=== PATIENT | female | born 1935 | race Caucasian/White ===

== ENCOUNTER 2019-11-26 08:07 | Emergency (ER) | payer MEDICARE ==
[~2019-11-26] VITALS: Ht 160 cm; Wt 54.4 kg
[~2019-11-26 08:07] MED LIST: ASPIRIN325 MG PO; COQ-10100 MG PO; FLONASE16 GM NS; K DUR10 MEQ PO; LASIX20 MG PO; LASIX40 MG PO; METOPROLOL TART50 MG PO; MUCINEX DM ER1 EACH PO; NORVASC5 MG PO; PLAVIX75 MG PO; VITAMIN D1000 UNI1 PO
--- NOTE | 2019-11-26 08:29 | Emergency Department Note ---
History of Present Illnes History of Present Illness Chief Complaint: Back Pain History of Present Illness This is a 83 year old female arrives to the ED with several day history of left flank pain is worse with motion. Historian: Patient Arrival Mode: Car Onset (how long ago): day(s) Radiation: Reports back Severity: mild Duration (how long): day(s) Timing of current episode: constant Progression: worsening Chronicity: new Context: Reports trauma/injury Relieving factors: none Exacerbating factors: none Past Medical/Family History Physician Review I have reviewed the patient's past medical and family history. Any updates have been documented here. Past Medical History Recent Fever: No Clinical Suspicion of Infectio: No New/Unexplained Change in Ment: No Past Medical History: Hypertension, CVA Other Medical History: diverticulosis osyeroproosis subdural hematoma Other Surgery: kyphoplasty Social History Smoking Cessation: Never Smoker Counseling Performed: No Alcohol Use: None Any Illegal Drug Use: No Physically hurt or threatened: No Other Last Tetanus: unknown Any Pre-Existing Lines (PICC,: No Is patient up to date on immun: No Review of Systems Review of Systems Constitutional: Reports no symptoms EENTM: Reports no symptoms Cardiovascular: Reports no symptoms Respiratory: Reports no symptoms Gastrointestinal: Reports no symptoms Genitourinary: Reports no symptoms Musculoskeletal: Reports as per HPI, Reports back pain Integumentary: Reports no symptoms Neurological: Reports no symptoms Psychological: Reports no symptoms Endocrine: Reports no symptoms Hematological/Lymphatic: Reports no symptoms Physical Exam Related Data Allergies: Coded Allergies: warfarin (Verified Allergy, Intermediate, subdural bleeds, 04/18/14) Uncoded Allergies: PENICILLIN (Allergy, Intermediate, hives, 04/18/14) Triage Vital Signs Vital Signs Date Time Temp Pulse Resp B/P (MAP) Pulse Ox O2 Delivery O2 Flow Rate FiO2 11/26/19 08:09 98.8 85 16 152/92 96 Room Air Vital signs reviewed: Yes Physical Exam CONSTITUTIONAL Constitutional: Present well-developed, Present well-nourished HENT HENT: Present normocephalic, Present atraumatic, Present oropharynx clear/moist, Present nose normal HENT L/R: Present left ext ear normal, Present right ext ear normal EYES Eyes: Reports PERRL, Reports conjunctivae normal NECK Neck: Present ROM normal PULMONARY Pulmonary: Present effort normal, Present breath sounds normal CARDIOVASCULAR Cardiovascular: Present regular rhythm, Present heart sounds normal, Present capillary refill normal, Present normal rate GASTROINTESTINAL Abdominal: Present soft, Present nontender, Present bowel sounds normal, Present left CVA tenderness GENITOURINARY Genitourinary: Present exam deferred SKIN Skin: Present warm, Present dry MUSCULOSKELETAL Musculoskeletal: Present tenderness, Present swelling (left flank tenderness, no rash, no skin break) NEUROLOGICAL Neurological: Present alert, Present oriented x 3, Present no gross motor or sensory deficits PSYCHOLOGICAL Psychological: Present mood/affect normal, Present judgement normal Results Laboratory Lab results reviewed: Yes Imaging Imaging results reviewed: Yes Imaging Comments IMPRESSION: Moderate left hydronephrosis without obstructing calculus identified. 4 mm nonobstructive right midpole renal calculus. Increased stool burden. Diverticulosis without CT evidence of diverticulitis. Diffuse osteopenia and prominent dextroconvex curvature and multilevel degenerative changes of the lumbar spine. Assessment & Plan Medical Decision Making MDM 83-year-old female arrived to the ED with left-sided flank pain. Marked scoliosis and constipation noted on CT scan. Renal stone noted, however, is intrarenal and less likely causes of pain. Patient given magnesium citrate and Colace, encouraged outpatient GI follow-up for management of her chronic constipation. No concerns for acute surgical emergency at time of discharge. Assessment & Plan Final Impression: (1) Constipation Depart Disposition: HOME, SELF-CARE Last Vital Signs Date Time Temp Pulse Resp B/P (MAP) Pulse Ox O2 Delivery O2 Flow Rate FiO2 11/26/19 08:09 98.8 85 16 152/92 96 Room Air Home Meds Active Scripts Docusate Sodium (COLACE) 100 Mg Cap, 100 MG PO DAILY, #30 CAP Prov:PEDRITO MAX, 11/26/19 Furosemide (LASIX) 40 Mg Tablet, 40 MG PO DAILY, #30 TAB Prov:SKY JACK MD 04/24/14 Reported Medications Fluticasone Propionate (FLONASE) 16 Gm [place].susp, 16 GM NS DAILY, BOTTLE 04/24/14 Guaifenesin/Dextromethorphan (MUCINEX DM ER 600-30 MG TABLET) 1 Each Tab.er.12h, 1 EACH PO BID PRN for NASAL CONGESTION, TAB 04/24/14 Metoprolol Tartrate (METOPROLOL TARTRATE) 50 Mg Tablet, 50 MG PO HS, TAB 04/24/14 Metoprolol Tartrate (METOPROLOL TARTRATE) 50 Mg Tablet, 100 MG PO QAM, TAB 04/24/14 Potassium Chloride* (K DUR*) 10 Meq Tabcr, 20 MEQ PO DAILY 04/24/14 Amlodipine Besylate (NORVASC) 5 Mg Tab, 10 MG PO DAILY, #30 TAB 04/24/14 Ubidecarenone (COQ-10) 100 Mg Capsule, 200 UNITS PO DAILY 04/18/14 Cholecalciferol (Vitamin D3) (VITAMIN D) 1,000 Unit Tablet, 1000 UNIT PO DAILY, #30 TAB 04/18/14 Medications in the ED Aspirin 81 mg PRN ONCE PO ; Start 11/26/19 at 08:30; Stop 11/26/19 at 08:31; Status UNV PEDRITO MAX, Nov 26, 2019 08:28
[2019-11-26] MEDS ORDERED: ASPIRIN 81 MG CHEW TAB PO ONE (08:30)
[2019-11-26] MEDS ORDERED: FENTANYL CITRATE/PF 100MCG/2 ML INJ IV ONE (08:30)
[2019-11-26 08:40] LABS: BASOPHILS # (AUTO) 0.1 (0.0-0.1); BASOPHILS % 0.7 % (0.0-1.0); EOSINOPHILS # (AUTO) 0.1 (0.0-0.4); EOSINOPHILS % 0.6 % (0.0-6.0); HEMATOCRIT 46.2 % (34.2-44.1); HEMOGLOBIN 15.1 g/dL (12.0-16.0); LYMPHOCYTES # (AUTO) 1.5 (1.0-3.2); LYMPHOCYTES % 18.2 % (18.0-39.1); MEAN CORPUSCULAR HEMOGLOBIN 28.8 pg (28-32); MEAN CORPUSCULAR HGB CONC 32.7 g/dL (31-35); MONOCYTES # (AUTO) 0.5 (0.2-0.8); MONOCYTES % 6.2 % (4.4-11.3); NEUTROPHILS # (AUTO) 6.1 (2.1-6.9); NEUTROPHILS % 73.9 % (38.7-80.0); PLATELET COUNT 286 x10e3/uL (140-360); RED BLOOD COUNT 5.25 x10e6/uL (3.6-5.1); RED CELL DISTRIBUTION WIDTH 13.1 % (11.7-14.4)
[2019-11-26 09:03] LABS: ALANINE AMINOTRANSFERASE 14 IU/L (0-55); ALBUMIN 3.9 g/dL (3.5-5.0); ALBUMIN/GLOBULIN RATIO 1.1 (0.8-2.0); ALKALINE PHOSPHATASE 95 IU/L (40-150); BLOOD UREA NITROGEN 12 mg/dL (7-26); BUN/CREATININE RATIO 14 (6-25); CALCIUM 9.7 mg/dL (8.4-10.2); CARBON DIOXIDE 22 mmol/L (22-29); CHLORIDE 106 mmol/L (98-107); CREATINE KINASE 32 IU/L (29-168); CREATININE, SERUM 0.85 mg/dL (0.57-1.11); EST GLOMERULAR FILTRATION RATE > 60 ML/MIN (60-); GLUCOSE 108 mg/dL (74-118); SODIUM 139 mmol/L (136-145)
--- NOTE | 2019-11-26 09:11 | Diagnostic Imaging Report ---
EXAMINATION: CHEST SINGLE (PORTABLE) INDICATION: Chest pain COMPARISON: Report of chest radiograph of 04/24/2014 (images not available for comparison). FINDINGS: LINES/TUBES:None LUNGS:The lungs are hyperinflated. Biapical pleural parenchymal thickening/scarring. No focal consolidation or pulmonary edema. PLEURA:Trace fissural fluid on the right. No pneumothorax. MEDIASTINUM:Cardiomediastinal silhouette is enlarged. BONES/SOFT TISSUES:No acute osseous injury. ABDOMEN:No free air under the diaphragm. IMPRESSION: Hyperinflated lungs and biapical pleural parenchymal thickening/scarring. No focal consolidation or pulmonary edema. Cardiomegaly. Signed by: Jeremy Tolentino MD on 11/26/2019 9:08 AM
[2019-11-26] MEDS ORDERED: METHYLPREDNISOLONE SOD SUCC 125 MG/2ML VIAL IV ONE (09:15)
[2019-11-26] MEDS ORDERED: DIAZEPAM 5 MG TAB PO ONE (09:30)
--- OUTSIDE RECORDS SUMMARY | 2019-11-26 09:44 | XMS REPORT | Continuity of Care Document ---
Author Author [facility] t Organization [facility] Address [address] [place] [id number] Phone Unavailable Care Team Providers Care Licensed Clinical Psychologist Name Role Phone Charito MAX Attjuan f Unavailable Payers Payer Name Policy Type Policy Number Effective Date Expiration Date S ource Problems This patient has no known problems. Allergies, Adverse Reactions, Alerts This patient has no known allergies or adverse reactions. Medications This patient has no known medications. Procedures This patient has no known procedures. Results Test Description Test Time Test Comments Results Result Comments Source CHEST SINGLE (PORTABLE) 2019-11-26 09:06:00 [facility] [address] [place] [address] Patient Name: MEENAKSHI SOTELO MR #: [id number] : 1935 Age/Sex: 83/F Req #: [id number] Adm Physician: Ordered by: PEDRITO MAX DO Report #: [id number] Location: ER Room/Bed: Procedure: [id number] DX/CHEST SINGLE (PORTABLE) Exam Date: Exam Time: REPORT STATUS: Signed EXAMINATION: CHEST SINGLE (PORTABLE) INDICATION: Chest pain COMPARISON: Report of chest radiograph of 04/24/2014 (images not available for comparison). FINDINGS: LINES/TUBES:None LUNGS:The lungs are hyperinflated. Biapical pleural parenc hymal thickening/scarring. No focal consolidation or pulmonary edema. PLEURA:Trace fissural fluid on the right. No pneumothorax. MEDIASTINUM:Cardiomediastinal silhouette is enlarged. BONES/SOFT TISSUES:No acute osseous injury. ABDOMEN:No free air under the diaphragm. IMPRESSION: Hyperinflated lungs and biapical pleural parenchymal thickening/scarring. No focal consolidation or pulmonary edema. Cardiomegaly. Signed by: Thomas Tolentino MD on 11/26/2019 9:08 AM Dictated By: THOMAS TOLENTINO MD [id number] Transcribed By: YARON on 11/26/19 0908 COPY TO: PEDRITO MAX DO
--- NOTE | 2019-11-26 10:00 | Diagnostic Imaging Report ---
EXAM: CT Abdomen and Pelvis WITHOUT intravenous contrast INDICATION: Left flank pain COMPARISON: None. TECHNIQUE: Abdomen and pelvis were scanned utilizing a multidetector helical scanner from the lung base to the pubic symphysis without administration of IV contrast. Coronal and sagittal reformations were obtained. IV CONTRAST: None ORAL CONTRAST: None COMPLICATIONS: None RADIATION DOSE: Total DLP: 222 mGy*cm Dose modulation, iterative reconstruction, and/or weight based adjustment of the mA/kV was utilized to reduce the radiation dose to as low as reasonably achievable. FINDINGS: LOWER THORAX: No lung base consolidation. Coronary artery atherosclerotic calcifications. Cardiomegaly. HEPATOBILIARY: 1.7 cm segment 4 hepatic cystic structure. No other focal liver lesions. Unremarkable gallbladder. SPLEEN: No splenomegaly. PANCREAS: No focal masses or ductal dilatation. ADRENALS: No adrenal nodules. KIDNEYS/URETERS: Moderate left hydronephrosis without obstructing calculus identified. 4 mm nonobstructive right midpole renal calculus. PELVIC ORGANS/BLADDER: Unremarkable. PERITONEUM / RETROPERITONEUM: No free air or fluid. LYMPH NODES: No lymphadenopathy. VESSELS: Moderate atherosclerotic calcifications of the nonaneurysmal abdominal aorta and major branches. GI TRACT: Increased rectal stool burden. Diverticulosis without CT evidence of diverticulitis. No abnormal bowel thickening. No bowel obstruction. Normal appendix. BONES AND SOFT TISSUES: Diffuse osteopenia. Prominent dextroconvex curvature of the lumbar spine with prominent multilevel degenerative changes. No acute osseous injury. IMPRESSION: Moderate left hydronephrosis without obstructing calculus identified. 4 mm nonobstructive right midpole renal calculus. Increased stool burden. Diverticulosis without CT evidence of diverticulitis. Diffuse osteopenia and prominent dextroconvex curvature and multilevel degenerative changes of the lumbar spine. Signed by: Jeremy Tolentino MD on 11/26/2019 9:57 AM
[2019-11-26] MEDS ORDERED: ONDANSETRON HCL INJ 2MG/ML 2ML 2 MG/ML VIAL IV STA (10:14)
[2019-11-26] MEDS ORDERED: MORPHINE SULFATE INJ 4 MG/ML INJ 1ML IV ONE (10:30)
[2019-11-26] MEDS ORDERED: SODIUM CHLORIDE 0.9% 1000ML 1,000 ML ONE (10:33)
[2019-11-26] MEDS ORDERED: SODIUM CHLORIDE 0.9% 1000ML 1,000 ML IV ONE (10:45)
[2019-11-26 11:06] LABS: BILIRUBIN,URINE NEGATIVE (NEGATIVE); CLARITY,URINE CLOUDY (CLEAR); COLOR,URINE YELLOW (YELLOW); KETONES,URINE NEGATIVE (NEGATIVE); LEUKOCYTE ESTERASE ,URINE MODERATE (NEGATIVE); NITRITE,URINE POSITIVE (NEGATIVE); PROTEIN,URINE DIPSTICK 1+ (NEGATIVE); URINE UROBILINOGEN 1 mg/dL (0.2 - 1)
[2019-11-26 11:13] LABS: WBC,URINE (MAN) 21-50 /HPF (0-5)
[2019-11-26 11:14] LABS: BACTERIA,URINE MANY /HPF; EPITHELIAL CELLS,URINE MODERATE /LPF; RBC,URINE 0-5 /HPF (0-5); TRANSITIONAL EPI CELLS,URINE FEW
[2019-11-26] MEDS ORDERED: CITRATE OF MAGNESIA 300ML BOTTLE PO ONE (12:30)
[2019-11-26] MEDS ORDERED: CEFTRIAXONE SOD 1 GM/NS 50 ML 50 ML IV ONE (12:30)
[2019-11-26] MEDS ORDERED: COLACE100 MG PO (12:48)
== END 2019-11-26 13:41 | disposition home or self-care (01) ==
LOC: ER 08:15
DX: K59.00 Constipation, unspecified (principal); M54.5 Low back pain; N13.2 Hydronephrosis with renal and ureteral calculous obstruction; K57.90 Diverticulosis of intestine, part unspecified, without perforation or abscess without bleeding; I10 Essential (primary) hypertension; K76.89 Other specified diseases of liver; M85.88 Other specified disorders of bone density and structure, other site; I69.30 Unspecified sequelae of cerebral infarction
CPT/HCPCS: 36415; 71045; 74176; 80053; 81001; 82550; 82553; 84484; 85025; 99284; J0696; J2270; J2405; J2930; J3010; J7030

== ENCOUNTER 2019-12-06 12:27 | Emergency (ER) | payer MEDICARE ==
[~2019-12-06] VITALS: Ht 160 cm; Wt 54.4 kg
[~2019-12-06 12:27] MED LIST changes: +COLACE100 MG PO
--- OUTSIDE RECORDS SUMMARY | 2019-12-06 12:55 | XMS REPORT | Continuity of Care Document ---
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 Name Role Phone Lele GALICIA III PCP Joe MAX Attphyjoe Unavailable Payers Payer Name Policy Type Policy Number Effective Date Expiration Date Joe Foley Medicare Advantage [id number] 2013 00:00:00 [facility] Problems Condition Name Condition Details Condition Category Status Onset Date Resolution Date Last Treatment Date Treating Clinician Comments Source Cerebral infarction Problem Active 2014-04-18 00:00:00 [facility] Atrial fibrillation Problem Active 2014-04-18 00:00:00 [facility] Allergies, Adverse Reactions, Alerts Allergy Name Allergy Type Status Severity Reaction(s) Onset Date Inacti ve Date Treating Clinician Comments Source Warfarin Allergy to substance Active Moderate subdural bleeds 2014-04-18 00:00:00 [facility] PENICILLIN Allergy to substance Active Moderate hives 2014-04-18 00:00:0 0 [facility] Social History Social Habit Start Date Stop Date Quantity Comments Source Sex Assigned At 1935 00:00:00 1935 00:00:00 Female [facility] Medications Ordered Medication Name Filled Medication Name Start Date Stop Da te Current Medication? Ordering Clinician Indication Dosage Frequency Signature (SIG) Comments Components Source Docusate Sodium (Colace) 100 Mg CAP Docusate Sodium (Colace) 100 Mg CAP 2019-11-26 12:48:00 Yes 100 Daily [facility] Furosemide (Lasix) 40 Mg TABLET Furosemide (Lasix) 40 Mg TAB LET 2014-04-24 10:46:00 Yes 40 Daily [facility] Amlodipine Besylate (Norvasc) 5 Mg TAB Amlodipine Besylate (Norv asc) 5 Mg TAB Yes 10 Daily [facility] Cholecalciferol (Vitamin D3) (Vitamin D) 1,000 Unit TA BLET Cholecalciferol (Vitamin D3) (Vitamin D) 1,000 Unit TABLET Yes 1000 Daily [facility] Fluticasone Propionate (Flonase) 16 Gm SPRAY.SUSP Flut icasone Propionate (Flonase) 16 Gm SPRAY.SUSP Yes 16 Daily [facility] Guaifenesin/Dextromethorphan (Mucinex Dm Er 600-30 Mg Tablet) 1 Each TAB.ER.12H Guaifenesin/Dextromethorphan (Mucinex Dm Er 600-30 Mg Tablet) 1 Each TAB.ER.12H Yes 1 Twice A Day as needed for Nasal Congestion [facility] Metoprolol Tartrate Metoprolol Tartrate Yes 100 Every Morning [facility] Metoprolol Tartrate Metoprolol Tartrate Yes 50 Bedtime [facility] Potassium Chloride (K Dur*) 10 Meq TABCR Potassium Chl oride (K Dur*) 10 Meq TABCR Yes 20 Daily [facility] Ubidecarenone (Coq-10) 100 Mg CAPSULE Ubidecarenone (Coq-10) 100 Mg CAPSULE Yes 200 Daily [facility] Aspirin Aspirin 2014-04-24 00:00:00 No 325 [facility] Clopidogrel Bisulfate (Plavix) 75 Mg TABLET Clopidogre l Bisulfate (Plavix) 75 Mg TABLET 2014-04-24 00:00:00 No 75 Bedtime [facility] Furosemide (Lasix) 20 Mg TABLET Furosemide (Lasix) 20 Mg TABLET 2014-04-24 00:00:00 No 20 Daily [facility] Metoprolol Tartrate Metoprolol Tartrate 2014-04-24 00:00:00 No 50 Twice A Day [facility] Vital Signs Vital Name Observation Time Observation Value Comments Source Weight 2019-11-26 08:09:00 120 [lb_av] [facility] BMI (Body Mass Index) 2019-11-26 08:09:00 21.3 kg/m2 [facility] Procedures Procedure Date / Time Performed Performing Clinician Sour e CT of abdomen and pelvis without contrast 2019-11-26 00:00:00 [facility] Plan of Care Planned Activity Planned Date Details Comments Source Instructions Back Pain [facility] Instructions Constipation - Adult [facility] Results Test Description Test Time Test Comments Results Result Comments Source Urine color determination 2019-11-26 10:25:00 Test Item Urine Color (test code = 5778-6) YELLOW YELLOW [facility]rine [id number] 10:25:00* Test Item Value Reference Range Interpretation Comments Urine Clarity (test code = 47865-0) [facility]OUDY CLEAR [facility] by Test strip 2019-11-26 10:25:00* Test Item Value Reference Range Interpretation Comments Urine Specific Pool (test code = 5811-5) 1.020 1.010-1.02 5 [facility] pH measurement by automated test [id number] 10:25:00* Test Item Value Reference Range Interpretation Comments Urine pH (test code = 49288-0) 7.5 5-7 [facility] leukocyte esterase detection by [id number] 10:25:00* Test Item Value Reference Range Interpretation Comments Urine Leukocyte Esterase (test code = 5799-2) MODERATE NEGATIVE [facility]rine nitrite [id number] 10:25:00* Test Item Value Reference Range Interpretation Comments Urine Nitrite (test code = 14840-9) POSITIVE NEGATIVE [facility] protein measurement by test strip (mass/volume)2019-11-26 10:25:00* Test Item Value Reference Range Interpretation Comments Urine Protein (test code = 5804-0) 1+ NEGATIVE [facility] glucose [id number] 10:25:00* Test Item Value Reference Range Interpretation Comments Urine Glucose (UA) (test code = 2349-9) NEGATIVE NEGATIVE [facility]rine ketones detection by automated test [id number] 10:25:00* Test Item Value Reference Range Interpretation Comments Urine Ketones (test code = 78296-8) NEGATIVE NEGATIVE [facility]rine urobilinogen measurement by test strip (mass/volume)2019-11-26 10:25:00* Test Item Value Reference Range Interpretation Comments Urine Urobilinogen (test code = 86568-1) 1 0.2-1 [facility] total bilirubin measurement (mass/volume)2019-11-26 10:25:00* Test Item Value Reference Range Interpretation Comments Urine Bilirubin (test code = 1978-6) NEGATIVE NEGATIVE [facility]rine erythrocytes [id number] 10:25:00* Test Item Value Reference Range Interpretation Comments Urine Blood (test code = 13926-0) TRACE NEGATIVE [facility] FallsAutomated urine sediment leukocyte count by microscopy (number/high power field)2019-11-26 10:25:00* Test Item Value Reference Range Interpretation Comments Urine WBC (test code = 5821-4) 21-50 0-5 [facility] FallsErythrocytes detection in urine sediment by light [id number] 10:25:00* Test Item Value Reference Range Interpretation Comments Urine RBC (test code = 84233-7) 0-5 0-5 [facility] FallsBacteria detection in urine sediment by light [id number] 10:25:00* Test Item Value Reference Range Interpretation Comments Urine Bacteria (test code = 40219-3) MANY NONE [facility] FallsEpithelial cells detection in urine sediment by light [id number] 10:25:00* Test Item Value Reference Range Interpretation Comments Urine Epithelial Cells (test code = 44857-4) MODERATE NONE [facility] FallsTransitional cells detection in urine sediment by light [id number] 10:25:00* Test Item Value Reference Range Interpretation Comments Urine Transitional Epithelial Cells (test code = 8249-5) FEW NONE [facility]PELVIS [id number] 09:49:00 [facility] [address] [address] Patient Name: MEENAKSHI SOTELO MR #: [id number] : 1935 Age/Sex: 83/F Req #: [id number] Adm Physician: Ordered by: PEDRITO MAX DO Report #: [id number] Location: [facility]/Bed: Procedure: [id number] CT/CT ABDOM EN/PELVIS WO Exam Date: 11/26/19 Exam Time: 0900 REPORT STATUS: Signed EXAM: CT Abdo men and Pelvis WITHOUT intravenous contrast INDICATION: Left flank pain COMPARISON: None. TECHNIQUE: Abdomen and pelvis were scanned utilizing a multidetector helical scanner from the lung base to the pubic symphysis with out administration of IV contrast. Coronal and sagittal reformations were obta ined. IV CONTRAST: None ORAL CONTRAST: None COMPLI CATIONS: None RADIATION DOSE: Total DLP: 222 mGy*cm Dose modulation , iterative reconstruction, and/or weight based adjustment of the mA/kV was ut ilized to reduce the radiation dose to as low as reasonably achievable. FINDINGS: LOWER THORAX: No lung base consolidation. Coronary artery atheroscle rotic calcifications. Cardiomegaly. HEPATOBILIARY: 1.7 cm segment 4 hepat ic cystic structure. No other focal liver lesions. Unremarkable gallbladder. SPLEEN: No splenomegaly. PANCREAS: No focal masses or ductal dilatation . ADRENALS: No adrenal nodules. KIDNEYS/URETERS: Moderate left hydronephr osis without obstructing calculus identified. 4 mm nonobstructive right midpol e renal calculus. PELVIC ORGANS/BLADDER: Unremarkable. PERITONEUM / RETRO PERITONEUM: No free air or fluid. LYMPH NODES: No lymphadenopathy. VESSELS: Moderate atherosclerotic calcifications of the nonaneurysmal abdominal aorta a nd major branches. GI TRACT: Increased rectal stool burden. Diverticulosis without CT evidence of diverticulitis. No abnormal bowel thickening. No bowel obstruction. Normal appendix. BONES AND SOFT TISSUES: Diffuse osteopenia. Prominent dextroconvex curvature of the lumbar spine with prominent multileve l degenerative changes. No acute osseous injury. IMPRESSION: Moderate left hydronephrosis without obstructing calculus identified. 4 mm nonobstructi ve right midpole renal calculus. Increased stool burden. Diverticulosi s without CT evidence of diverticulitis. Diffuse osteopenia and prominent d extroconvex curvature and multilevel degenerative changes of the lumbar spine. Signed by: Thomas Tolentino MD on 11/26/2019 9:57 AM Dictated By: THOMAS TOLENTINO MD 6 Transcribed By: YARON on 11/26/19956 COPY TO: PEDRITO MAX DO CHEST SINGLE (PORTABLE)2019-11-26 09:06:[address] [address] Patient Name: MEENAKSHI SOTELO MR #: [id number] : 1935 Age/Sex: 83/F Req #: [id number] Adm Physician: Ordered by: PEDRITO MAX DO Report #: [id number] Location: ER Room/Bed: Procedure: [id number] DX/CHEST SI NGLE (PORTABLE) Exam Date: 11/26/19 Exam Time: 08 REPORT STATUS: Signed EXAMINATIO N: CHEST SINGLE (PORTABLE) INDICATION: Chest pain COMPARISON: Rep ort of chest radiograph of 04/24/2014 (images not available for comparison). FINDINGS: LINES/TUBES:None LUNGS:The lungs are hyperinflated. B iapical pleural parenchymal thickening/scarring. No focal consolidation or pul monary edema. PLEURA:Trace fissural fluid on the right. No pneumothorax. MEDIASTINUM:Cardiomediastinal silhouette is enlarged. BONES/SOFT TISSUES :No acute osseous injury. ABDOMEN:No free air under the diaphragm. IMPRESSION: Hyperinflated lungs and biapical pleural parenchymal thickening/s carring. No focal consolidation or pulmonary edema. Cardiomegaly. Si gned by: Thomas Tolentino MD on 11/26/2019 9:08 AM Dictated By: THOMAS TOLENTINO MD E lectronically Signed By: THOMAS TOLENTINO MD on 11/26/19907 Transcribed By: YARON on 11/26/19907 COPY TO: PEDRITO MAX, Blood leukocytes automated count (number/volume)2019-11-26 08:25:00* Test Item Value Reference Range Interpretation Comments White Blood Count (test code = 6690-2) 8.22 4.8-10.8 [facility] erythrocytes automated count (number/volume)2019-11-26 08:25:00* Test Item Value Reference Range Interpretation Comments Red Blood Count (test code = 789-8) 5.25 3.6-5.1 [facility] FallsBlood hemoglobin measurement (moles/volume)2019-11-26 08:25:00* Test Item Value Reference Range Interpretation Comments Hemoglobin (test code = 97595-1) 15.1 12.0-16.0 [facility] FallsAutomated blood hematocrit (volume fraction)2019-11-26 08:25:00* Test Item Value Reference Range Interpretation Comments Hematocrit (test code = 4544-3) 46.2 34.2-44.1 [facility] FallsAutomated erythrocyte mean corpuscular [id number] 08:25:00* Test Item Value Reference Range Interpretation Comments Mean Corpuscular Volume (test code = 787-2) 88.0 81-99 [facility] FallsAutomated erythrocyte mean corpuscular hemoglobin (mass per erythrocyte)2019-11-26 08:25:00* Test Item Value Reference Range Interpretation Comments Mean Corpuscular Hemoglobin (test code = 785-6) 28.8 28-32 [facility] FallsAutomated erythrocyte mean corpuscular hemoglobin concentration measurement (mass/volume)2019-11-26 08:25:00* Test Item Value Reference Range Interpretation Comments Mean Corpuscular Hemoglobin Concent (test code = 786-4) 32.7 31-35 [facility] FallsRDW KejSq-Ncz4060-66-07 08:25:00* Test Item Value Reference Range Interpretation Comments Red Cell Distribution Width (test code = 16968-6) 13.1 11.7 -14.4 [facility] FallsAutomated blood platelet count (count/volume)2019-11-26 08:25:00* Test Item Value Reference Range Interpretation Comments Platelet Count (test code = 777-3) 286 140-360 [facility] FallsAutomated blood segmented neutrophil count as percentage of total sqwbcrdtrm4102-72-54 08:25:00* Test Item Value Reference Range Interpretation Comments Neutrophils (%) (Auto) (test code = 69002-7) 73.9 38.7-80.0 [facility] FallsAutomated blood lymphocyte count as percentage ot total dnupuzxedm4969-34-99 08:25:00* Test Item Value Reference Range Interpretation Comments Lymphocytes (%) (Auto) (test code = 736-9) 18.2 18.0-39.1 [facility] FallsAutomated blood monocyte count as percentage of total tqicvubbyl5227-44-13 08:25:00* Test Item Value Reference Range Interpretation Comments Monocytes (%) (Auto) (test code = 5905-5) 6.2 4.4-11.3 [facility] FallsAutomated blood eosinophil count as percentage of total cmuxddzmxe1800-28-59 08:25:00* Test Item Value Reference Range Interpretation Comments Eosinophils (%) (Auto) (test code = 713-8) 0.6 0.0-6.0 [facility] FallsAutomated blood basophil count as percentage of total euzkkdokgy5276-05-86 08:25:00* Test Item Value Reference Range Interpretation Comments Basophils (%) (Auto) (test code = 706-2) 0.7 0.0-1.0 [facility] FallsFluoroscopic procedure less than one hour [id number] 08:25:00* Test Item Value Reference Range Interpretation Comments IM GRANULOCYTES % (test code = IM GRANULOCYTES %) 0.4 0.0- 1.0 [facility] FallsAutomated blood neutrophil count 2019-11-26 08:25:00* Test Item Value Reference Range Interpretation Comments Neutrophils # (Auto) (test code = 751-8) 6.1 2.1-6.9 [facility] FallsBlood lymphocytes count (number/volume) 2019-11-26 08:25:00* Test Item Value Reference Range Interpretation Comments Lymphocytes # (Auto) (test code = 87758-1) 1.5 1.0-3.2 [facility] FallsBlood monocytes automated count (number/volume)2019-11-26 08:25:00* Test Item Value Reference Range Interpretation Comments Monocytes # (Auto) (test code = 742-7) 0.5 0.2-0.8 [facility] FallsAutomated blood eosinophil count 2019-11-26 08:25:00* Test Item Value Reference Range Interpretation Comments Eosinophils # (Auto) (test code = 711-2) 0.1 0.0-0.4 [facility] FallsAutomated blood basophil count (count/volume)2019-11-26 08:25:00* Test Item Value Reference Range Interpretation Comments Basophils # (Auto) (test code = 704-7) 0.1 0.0-0.1 [facility] FallsFluoroscopic procedure less than one hour [id number] 08:25:00* Test Item Value Reference Range Interpretation Comments Absolute Immature Granulocyte (auto (vaughn t code = Absolute Immature Granulocyte (auto) 0.03 0-0.1 [facility]ererum or plasma sodium measurement (moles/volume)2019-11-26 08:25:00* Test Item Value Reference Range Interpretation Comments Sodium Level (test code = 2951-2) 139 136-145 [facility]ererum or plasma potassium measurement (moles/volume)2019-11-26 08:25:00* Test Item Value Reference Range Interpretation Comments Potassium Level (test code = 2823-3) 4.0 3.5-5.1 [facility]ererum or plasma chloride measurement (moles/volume)2019-11-26 08:25:00* Test Item Value Reference Range Interpretation Comments Chloride Level (test code = 2075-0) 106 98-107 [facility]ererum or plasma carbon dioxide, total measurement (moles/volume)2019-11-26 08:25:00* Test Item Value Reference Range Interpretation Comments Carbon Dioxide Level (test code = 2028-9) 22 22-29 [facility]ererum or plasma anion fwd2005-70-21 08:25:00* Test Item Value Reference Range Interpretation Comments Anion Gap (test code = 92315-7) 15.0 8-16 [facility]ererum or plasma urea nitrogen measurement (mass/volume)2019-11-26 08:25:00* Test Item Value Reference Range Interpretation Comments Blood Urea Nitrogen (test code = 3094-0) 12 7-26 [facility]ererum or plasma creatinine measurement (mass/volume)2019-11-26 08:25:00* Test Item Value Reference Range Interpretation Comments Creatinine (test code = 2160-0) 0.85 0.57-1.11 [facility]ererum or plasma urea nitrogen/creatinine mass flmca7676-22-03 08:25:00* Test Item Value Reference Range Interpretation Comments BUN/Creatinine Ratio (test code = 3097-3) 14 6-25 [facility] FallsEstimated glomerular filtration rate (GFR) bxlrnhpzdylyx1523-20-89 08:25:00* Test Item Value Reference Range Interpretation Comments Estimat Glomerular Filtration Rate (test code = 886529277) > 60 >60 Ranges were taken from the National Kidney Disease Education Program and the [facility] literature.Reference ranges:60 or greater: Fhiqqt13-18 ( for 3 consecutive months): Chronic kidney disease 15 or less: Kidney failureB[facility] FallsGlucose ivmjpxywezn4294-16-50 08:25:00* Test Item Value Reference Range Interpretation Comments Glucose Level (test code = CAC7310) 108 74-118 [facility]ererum or plasma calcium measurement (mass/volume)2019-11-26 08:25:00* Test Item Value Reference Range Interpretation Comments Calcium Level (test code = 80350-4) 9.7 8.4-10.2 [facility]ererum or plasma total bilirubin measurement (mass/volume)2019-11-26 08:25:00* Test Item Value Reference Range Interpretation Comments Total Bilirubin (test code = 1975-2) 0.8 0.2-1.2 [facility] FallsFluoroscopic procedure less than one hour byxysray1304-79-76 08:25:00* Test Item Value Reference Range Interpretation Comments Aspartate Amino Transf (AST/SGOT) (test code = Aspartate Amino Transf (AST/SGOT)) 16 5-34 [facility]ererum or plasma alanine aminotransferase measurement (enzymatic activity/volume)2019-11-26 08:25:00* Test Item Value Reference Range Interpretation Comments Alanine Aminotransferase (ALT/SGPT) (test code = 1742-6) 14 0-55 [facility]ererum or plasma protein measurement (mass/volume)2019-11-26 08:25:00* Test Item Value Reference Range Interpretation Comments Total Protein (test code = 2885-2) 7.6 6.5-8.1 [facility] Centererum or plasma albumin measurement (mass/volume)2019-11-26 08:25:00* Test Item Value Reference Range Interpretation Comments Albumin (test code = 1751-7) 3.9 3.5-5.0 [facility] FallsPlasma globulin measurement (mass/volume) 2019-11-26 08:25:00* Test Item Value Reference Range Interpretation Comments Globulin (test code = 10085-6) 3.7 2.3-3.5 [facility] Centererum or plasma albumin/globulin mass kcchv5951-11-15 08:25:00* Test Item Value Reference Range Interpretation Comments Albumin/Globulin Ratio (test code = 1759-0) 1.1 0.8-2.0 [facility]ererum or plasma alkaline phosphatase measurement (enzymatic activity/volume)2019-11-26 08:25:00* Test Item Value Reference Range Interpretation Comments Alkaline Phosphatase (test code = 6768-6) 95 40-150 [facility] Centererum or plasma creatine kinase measurement (enzymatic activity/volume)2019-11-26 08:25:00* Test Item Value Reference Range Interpretation Comments Creatine Kinase (test code = 2157-6) 32 29-168 [facility]ererum or plasma creatine kinase MB measurement (mass/volume)2019-11-26 08:25:00* Test Item Value Reference Range Interpretation Comments Creatine Kinase MB (test code = 97163-4) 1.10 0-5.0 [facility] FallsTroponin I measurement by highly sensitive enzyme lwvwatbnefd5347-84-65 08:25:00* Test Item Value Reference Range Interpretation Comments Troponin I (test code = 53912-6) 0.011 0-0.300 [facility]
[2019-12-06 13:38] LABS: BASOPHILS # (AUTO) 0.1 (0.0-0.1); BASOPHILS % 0.7 % (0.0-1.0); EOSINOPHILS # (AUTO) 0.1 (0.0-0.4); EOSINOPHILS % 1.9 % (0.0-6.0); HEMATOCRIT 45.5 % (34.2-44.1); HEMOGLOBIN 14.8 g/dL (12.0-16.0); LYMPHOCYTES # (AUTO) 1.6 (1.0-3.2); LYMPHOCYTES % 23.8 % (18.0-39.1); MEAN CORPUSCULAR HEMOGLOBIN 28.7 pg (28-32); MEAN CORPUSCULAR HGB CONC 32.5 g/dL (31-35); MEAN CORPUSCULAR VOLUME 88.2 fL (81-99); MONOCYTES # (AUTO) 0.7 (0.2-0.8); NEUTROPHILS # (AUTO) 4.2 (2.1-6.9); PLATELET COUNT 322 x10e3/uL (140-360); RED BLOOD COUNT 5.16 x10e6/uL (3.6-5.1); RED CELL DISTRIBUTION WIDTH 13.7 % (11.7-14.4)
[2019-12-06 13:42] LABS: BILIRUBIN,URINE NEGATIVE (NEGATIVE); CLARITY,URINE CLEAR (CLEAR); COLOR,URINE YELLOW (YELLOW); KETONES,URINE NEGATIVE (NEGATIVE); LEUKOCYTE ESTERASE ,URINE SMALL (NEGATIVE); NITRITE,URINE NEGATIVE (NEGATIVE); PROTEIN,URINE DIPSTICK NEGATIVE (NEGATIVE); URINE UROBILINOGEN 0.2 mg/dL (0.2 - 1)
[2019-12-06 13:47] LABS: BACTERIA,URINE FEW /HPF; EPITHELIAL CELLS,URINE FEW /LPF; MUCUS,URINE FEW (RARE); RENAL EPITHELIAL CELLS,URINE FEW
[2019-12-06] MEDS ORDERED: KETOROLAC TROMETHAMINE 30 MG/ML VIAL IV STA (13:54)
[2019-12-06] MEDS ORDERED: SODIUM CHLORIDE 0.9% 1000ML 1,000 ML IV STA (13:54)
[2019-12-06] MEDS ORDERED: ONDANSETRON HCL INJ 2MG/ML 2ML 2 MG/ML VIAL IV STA (13:54)
[2019-12-06] MEDS ORDERED: MORPHINE SULFATE 2 MG/ML SYR 1ML IV STA (13:54)
[2019-12-06 13:56] LABS: ALBUMIN 3.8 g/dL (3.5-5.0); ALBUMIN/GLOBULIN RATIO 1.1 (0.8-2.0); ANION GAP 16.2 mmol/L (8-16); CALCIUM 9.5 mg/dL (8.4-10.2); CREATININE, SERUM 1.01 mg/dL (0.57-1.11); POTASSIUM 4.2 mmol/L (3.5-5.1)
[2019-12-06] MEDS ORDERED: CEFTRIAXONE SOD 1 GM/NS 50 ML 50 ML IV ONE (14:45)
--- NOTE | 2019-12-06 14:50 | Diagnostic Imaging Report ---
KUB History: Kidney stone Comparison: None. Findings: 3.5 mm radiopacity seen overlying the right renal outline. Another 3 to 4 mm opacity seen overlying the lower pole of the renal outline. These could potentially represent renal calculi. The left kidney is obscured by overlying bowel and tissue folds. No ureteric calculi. No bladder calculi. Nonobstructive bowel gas pattern. Lung bases clear. Lumbar kyphoscoliosis with advanced degenerative changes. Osteopenia. Impression: Possible right renal calculi as described above. The left kidney is obscured. No right or left ureteric or bladder calculi. Signed by: Raimundo Noe MD on 12/06/2019 2:47 PM
--- NOTE | 2019-12-06 15:39 | Emergency Department Note ---
History of Present Illnes History of Present Illness Chief Complaint: Genitourinary History of Present Illness This is a 84 year old female seen here on 11/26/2019 told she had a kidney stone in left kidney c/o left lower back pain started around 1100 this morning does not have a urologist states she was told by pcp by to come into er for further eval denies dysuria/hematuria states she has not passed stone yet given pain rx states it helps a little but pain comes back. Historian: Patient Arrival Mode: Car Back Line Cook Required: No Onset (how long ago): day(s) (10) Location: LEFT FLANK Quality: PAIN Radiation: Reports back Severity: moderate Onset quality: sudden Timing of current episode: intermittent Progression: waxing and waning Chronicity: new Context: Denies recent illness Relieving factors: none Exacerbating factors: none Associated symptoms: Reports denies other symptoms Treatments prior to arrival: none Past Medical/Family History Physician Review I have reviewed the patient's past medical and family history. Any updates have been documented here. Past Medical History Recent Fever: No Clinical Suspicion of Infectio: No New/Unexplained Change in Ment: No Past Medical History: Hypertension, CVA Other Medical History: diverticulosis osyeroproosis subdural hematoma Other Surgery: kyphoplasty Social History Smoking Cessation: Never Smoker Counseling Performed: No Alcohol Use: None Any Illegal Drug Use: No TB Exposure/Symptoms: No Physically hurt or threatened: No Family History Family history of heart diseas: No Other Last Tetanus: unknown Any Pre-Existing Lines (PICC,: No Review of Systems Review of Systems Constitutional: Reports no symptoms EENTM: Reports no symptoms Cardiovascular: Reports no symptoms Respiratory: Reports no symptoms Gastrointestinal: Reports as per HPI Genitourinary: Reports no symptoms Musculoskeletal: Reports no symptoms Integumentary: Reports no symptoms Neurological: Reports no symptoms Psychological: Reports no symptoms Endocrine: Reports no symptoms Hematological/Lymphatic: Reports no symptoms Physical Exam Related Data Allergies: Coded Allergies: warfarin (Verified Allergy, Intermediate, subdural bleeds, 04/18/14) Uncoded Allergies: PENICILLIN (Allergy, Intermediate, hives, 04/18/14) Triage Vital Signs Vital Signs Date Time Temp Pulse Resp B/P (MAP) Pulse Ox O2 Delivery O2 Flow Rate FiO2 12/06/19 12:34 98.3 101 18 139/86 97 Room Air Vital signs reviewed: Yes Physical Exam CONSTITUTIONAL Constitutional: Present well-developed, Present well-nourished HENT HENT: Present normocephalic, Present atraumatic, Present oropharynx clear/moist, Present nose normal HENT L/R: Present left ext ear normal, Present right ext ear normal EYES Eyes: Reports PERRL, Reports conjunctivae normal NECK Neck: Present ROM normal PULMONARY Pulmonary: Present effort normal, Present breath sounds normal CARDIOVASCULAR Cardiovascular: Present regular rhythm, Present heart sounds normal, Present capillary refill normal, Present normal rate GASTROINTESTINAL Abdominal: Present left CVA tenderness GENITOURINARY Genitourinary: Present exam deferred SKIN Skin: Present warm, Present dry MUSCULOSKELETAL Musculoskeletal: Present ROM normal NEUROLOGICAL Neurological: Present alert, Present oriented x 3, Present no gross motor or sensory deficits PSYCHOLOGICAL Psychological: Present mood/affect normal, Present judgement normal Results Laboratory Result Diagram: 12/06/19 1245 12/06/19 1245 Laboratory Laboratory Tests Test 12/06/19 12:45 White Blood Count 6.73 x10e3/uL (4.8-10.8) Red Blood Count 5.16 x10e6/uL (3.6-5.1) Hemoglobin 14.8 g/dL (12.0-16.0) Hematocrit 45.5 % (34.2-44.1) Mean Corpuscular Volume 88.2 fL (81-99) Mean Corpuscular Hemoglobin 28.7 pg (28-32) Mean Corpuscular Hemoglobin Concent 32.5 g/dL (31-35) Red Cell Distribution Width 13.7 % (11.7-14.4) Platelet Count 322 x10e3/uL (140-360) Neutrophils (%) (Auto) 63.0 % (38.7-80.0) Lymphocytes (%) (Auto) 23.8 % (18.0-39.1) Monocytes (%) (Auto) 10.0 % (4.4-11.3) Eosinophils (%) (Auto) 1.9 % (0.0-6.0) Basophils (%) (Auto) 0.7 % (0.0-1.0) Neutrophils # (Auto) 4.2 (2.1-6.9) Lymphocytes # (Auto) 1.6 (1.0-3.2) Monocytes # (Auto) 0.7 (0.2-0.8) Eosinophils # (Auto) 0.1 (0.0-0.4) Basophils # (Auto) 0.1 (0.0-0.1) Absolute Immature Granulocyte (auto 0.04 x10e3/uL (0-0.1) Urine Color Yellow (YELLOW) Urine Clarity Clear (CLEAR) Urine pH 7 (5 - 7) Urine Specific [place] 1.015 (1.010-1.025) Urine Protein Negative (NEGATIVE) Urine Glucose (UA) Negative (NEGATIVE) Urine Ketones Negative (NEGATIVE) Urine Blood Negative (NEGATIVE) Urine Nitrite Negative (NEGATIVE) Urine Bilirubin Negative (NEGATIVE) Urine Urobilinogen 0.2 mg/dL (0.2 - 1) Urine Leukocyte Esterase Small (NEGATIVE) Urine RBC None /HPF (0-5) Urine WBC 11-20 /HPF (0-5) Urine Epithelial Cells Few /LPF (NONE) Urine Renal Epithelial Cells Few (NONE) Urine Bacteria Few /HPF (NONE) Urine Mucus Few (RARE) Sodium Level 137 mmol/L (136-145) Potassium Level 4.2 mmol/L (3.5-5.1) Chloride Level 104 mmol/L (98-107) Carbon Dioxide Level 21 mmol/L (22-29) Anion Gap 16.2 mmol/L (8-16) Blood Urea Nitrogen 10 mg/dL (7-26) Creatinine 1.01 mg/dL (0.57-1.11) Estimat Glomerular Filtration Rate 52 ML/MIN (60-) BUN/Creatinine Ratio 10 (6-25) Glucose Level 93 mg/dL (74-118) Calcium Level 9.5 mg/dL (8.4-10.2) Total Bilirubin 0.7 mg/dL (0.2-1.2) Aspartate Amino Transf (AST/SGOT) 17 IU/L (5-34) Alanine Aminotransferase (ALT/SGPT) 18 IU/L (0-55) Alkaline Phosphatase 121 IU/L (40-150) Total Protein 7.2 g/dL (6.5-8.1) Albumin 3.8 g/dL (3.5-5.0) Globulin 3.4 g/dL (2.3-3.5) Albumin/Globulin Ratio 1.1 (0.8-2.0) Lab results reviewed: Yes Imaging Imaging results reviewed: Yes Assessment & Plan Medical Decision Making MDM CBC, CHEM, UA/CX, KUB - R/O CONTINUED PRESENCE OF STONE, RENAL INSUFF, UTI/PYELO Reassessment Reassessment DC HOME, TYL #3, TORADOL, FLOMAX, CEFTIN 500 BID X 10 DAYS, F/U PCP AND DR NGUYEN Assessment & Plan Final Impression: (1) Kidney stone (2) UTI (urinary tract infection) Depart Disposition: HOME, SELF-CARE Last Vital Signs Date Time Temp Pulse Resp B/P (MAP) Pulse Ox O2 Delivery O2 Flow Rate FiO2 12/06/19 14:00 76 16 116/68 96 Room Air 12/06/19 12:34 98.3 Home Meds Active Scripts Docusate Sodium (COLACE) 100 Mg Cap, 100 MG PO DAILY, #30 CAP Prov:PEDRITO MAX, 11/26/19 Furosemide (LASIX) 40 Mg Tablet, 40 MG PO DAILY, #30 TAB Prov:SKY JACK MD 04/24/14 Reported Medications Fluticasone Propionate (FLONASE) 16 Gm [place].susp, 16 GM NS DAILY, BOTTLE 04/24/14 Guaifenesin/Dextromethorphan (MUCINEX DM ER 600-30 MG TABLET) 1 Each Tab.er.12h, 1 EACH PO BID PRN for NASAL CONGESTION, TAB 04/24/14 Metoprolol Tartrate (METOPROLOL TARTRATE) 50 Mg Tablet, 50 MG PO HS, TAB 04/24/14 Metoprolol Tartrate (METOPROLOL TARTRATE) 50 Mg Tablet, 100 MG PO QAM, TAB 04/24/14 Potassium Chloride* (K DUR*) 10 Meq Tabcr, 20 MEQ PO DAILY 04/24/14 Amlodipine Besylate (NORVASC) 5 Mg Tab, 10 MG PO DAILY, #30 TAB 04/24/14 Ubidecarenone (COQ-10) 100 Mg Capsule, 200 UNITS PO DAILY 04/18/14 Cholecalciferol (Vitamin D3) (VITAMIN D) 1,000 Unit Tablet, 1000 UNIT PO DAILY, #30 TAB 04/18/14 Medications in the ED Ceftriaxone Sodium 50 ml @ 100 mls/hr ONCE ONCE IV ; Start 12/06/19 at 14:45; Stop 12/06/19 at 15:14; Status DC Sodium Chloride 1,000 ml @ 0 mls/hr Q0M STAT IV ; Start 12/06/19 at 13:54; Stop 12/06/19 at 14:32; Status DC Ketorolac Tromethamine 30 mg ONCE STAT IV ; Start 12/06/19 at 13:54; Stop 12/06/19 at 14:32; Status DC Morphine Sulfate 2 mg NOW STAT IV ; Start 12/06/19 at 13:54; Stop 12/06/19 at 14:32; Status DC Ondansetron HCl 4 mg NOW STAT IV ; Start 12/06/19 at 13:54; Stop 12/06/19 at 14:32; Status DC RAMIN JOSEPH MD Dec 06, 2019 15:38
== END 2019-12-06 16:05 | disposition home or self-care (01) ==
LOC: ER 12:37
DX: N20.0 Calculus of kidney (principal); N39.0 Urinary tract infection, site not specified; M54.5 Low back pain; I10 Essential (primary) hypertension; Z87.19 Personal history of other diseases of the digestive system; Z86.73 Personal history of transient ischemic attack (TIA), and cerebral infarction without residual deficits
CPT/HCPCS: 36415; 74018; 80053; 81001; 85025; 87086; 99284; J0696; J1885; J2270; J2405; J7030

== ENCOUNTER → 2020-01-07 | Day surgery (SDC) | payer MEDICARE, OTHER ==
[2020-01-04 11:45] LABS: BASOPHILS # (AUTO) 0.1 (0.0-0.1); BASOPHILS % 0.7 % (0.0-1.0); EOSINOPHILS # (AUTO) 0.1 (0.0-0.4); EOSINOPHILS % 1.8 % (0.0-6.0); HEMATOCRIT 45.6 % (34.2-44.1); HEMOGLOBIN 14.6 g/dL (12.0-16.0); LYMPHOCYTES # (AUTO) 1.5 (1.0-3.2); LYMPHOCYTES % 20.4 % (18.0-39.1); MEAN CORPUSCULAR HEMOGLOBIN 28.7 pg (28-32); MEAN CORPUSCULAR VOLUME 89.6 fL (81-99); MONOCYTES # (AUTO) 0.6 (0.2-0.8); MONOCYTES % 7.9 % (4.4-11.3); NEUTROPHILS # (AUTO) 4.9 (2.1-6.9); NEUTROPHILS % 68.9 % (38.7-80.0); PLATELET COUNT 263 x10e3/uL (140-360); RED BLOOD COUNT 5.09 x10e6/uL (3.6-5.1); RED CELL DISTRIBUTION WIDTH 13.9 % (11.7-14.4)
[2020-01-04 11:59] LABS: ANION GAP 14.7 mmol/L (8-16); CALCIUM 9.7 mg/dL (8.4-10.2); CREATININE, SERUM 0.92 mg/dL (0.57-1.11); POTASSIUM 4.7 mmol/L (3.5-5.1)
--- NOTE | 2020-01-04 12:17 | Diagnostic Imaging Report ---
EXAMINATION: CHEST 2 VIEWS INDICATION: ^[id number] ^1148 ^PRE -OP COMPARISON: None FINDINGS: PA and lateral views TUBES and LINES: None. LUNGS: Lungs are hyper inflated. Biapical scarring. No focal pulmonary consolidation or mass. There is no evidence of pneumonia or pulmonary edema. PLEURA: No pleural effusion or pneumothorax. HEART AND MEDIASTINUM: The cardiomediastinal silhouette is unremarkable. BONES AND SOFT TISSUES: Osseous demineralization. Mid thoracic vertebroplasty change. Soft tissues are unremarkable. UPPER ABDOMEN: No free air under the diaphragm. IMPRESSION: No acute thoracic radiographic abnormality. Signed by: Perez Mancuso MD on 01/04/2020 12:14 PM
--- NOTE | 2020-01-04 12:20 | Diagnostic Imaging Report ---
EXAM: Abdomen Radiograph 1 View(s) INDICATION: ^[id number] ^1148 ^PRE -OP COMPARISON: 12/06/2019 FINDINGS: The bowel gas pattern is nonspecific. Moderate formed stool within the colon. Unchanged 4 mm calcification in the right renal interpolar region. Advanced degenerative changes of the lumbar spine. No free intraperitoneal air. IMPRESSION: Unchanged 4 mm right interpolar renal calculus. Nonspecific bowel gas pattern. Signed by: Perez Mancuso MD on 01/04/2020 12:17 PM
[~2020-01-07] MED LIST changes: +B&O 60MG R/S 60 MG SUPP PR ONE; +CEFEPIME 1GM/NS 0.9% 50 ML 50 ML IV ONE; +DEXAMETHASONE SOD PHOS INJ 4 MG/ML VIAL ONE; +ELIQUIS2.5 MG PO; +IOPAMIDOL 300MG/ML 50ML INFUS..BTL IV ONE; +LIDOCAINE HCL 2% JELLY 5 ML TUBE ONE; +LIDOCAINE HCL 2% LOCAL INJ 5 ML SDV VIAL INJ ONE; +ONDANSETRON HCL INJ 2MG/ML 2ML 2 MG/ML VIAL ONE; +PROPOFOL IV EMULSION 10 MG/ML 20 ML VIAL ONE; +SEVOFLURANE INHAL SOLN 250 ML PEN BTL ONE
--- NOTE | 2020-01-07 07:15 | NUR ---
SPIRITUAL CARE - Pre-Surgery Assessment: Pt in bed. Pt reported supportive attention from family and friends. Intervention: Hospice Home Health Aide provided pastoral presence, hospitality, sympathetic listening, and prayer. Acquainted pt with availability of inspector of dredging while hospitalized. Outcome: Pt expressed appreciation for visit. No need for follow up indicated at this time. CRISELDA Guardado Spiritual Care Department O: [phone]
[2020-01-07 10:05] VITALS: BP 128/92
--- NOTE | 2020-01-21 11:26 | Operative Report ---
DATE OF PROCEDURE: 01/07/2020 SURGEON: Christopher Ellis MD PREOPERATIVE DIAGNOSES: 1. Right nephrolithiasis. 2. Urinary tract infections. 3. Hydronephrosis. POSTOPERATIVE DIAGNOSES: 1. Right nephrolithiasis. 2. Urinary tract infections. 3. Hydronephrosis. 4. Grade 2 cephalad cystocele. 5. Grade 1 rectocele. 6. Urethral hypermobility. 7. Atrophic (senile) vaginitis. OPERATION PERFORMED: Note these were all staged procedures as part of multistaged, multistep process of managing the patient's urolithiasis 1. Right-sided extracorporeal shockwave lithotripsy (separate procedure performed for the right-sided nephrolithiasis). 2. Cystourethroscopy with bilateral ureteral catheterization and retrograde ureteropyelography (separate procedure performed for the urine tract infections on the right hand side and the urinary tract infection with hydronephrosis on the left hand side). 3. Interpretation of retrograde ureteropyelography. 4. Supervision of fluoroscopy, no radiologist present. 5. Pelvic examination under anesthesia. ANESTHESIA: General. COMPLICATIONS: None. CLINICAL SUMMARY: Nubia Kohler is an 84-year-old woman with the above preoperative diagnoses. She is brought for the above procedure. She has had some left flank pain and left hydronephrosis on CT. OPERATIVE PROCEDURE IN DETAIL: Informed consent was verified. Nubia Kohler was properly identified, taken to the operating room, placed on the lithotripsy table in supine position. Anesthesia was uneventfully begun. The patient's right nephrolithiasis was localized with biplanar fluoroscopy. A total of 3000 shocks were delivered with excellent fragmentation noted of the 5 mm right mid calyceal stone. The patient was then carefully and gently repositioned into the dorsal lithotomy position with all pressure points well padded. Her genitalia were prepared and draped in usual sterile fashion. The cystoscope sheath was inserted in the patient's urethra and bladder was drained. Panendoscopy revealed a tiny little stone piece was noted, normally positioned configured ureteral orifices were identified. There were no obvious mucosal lesions. Ureteral catheter was used to cannulate each ureter and retrograde ureteropyelograms were performed. Interpretation of retrograde ureteropyelography contrast was instilled in retrograde fashion bilaterally. The left side exhibited a bifid collecting system with no hydronephrosis and unobstructed drainage. The right side exhibited filling defects and we performed lithotripsy, but there was no hydronephrosis and unobstructed drainage was identified. The patient's bladder was drained. Cystoscope was withdrawn. Pelvic examination revealed a grade 2 cephalad cystocele. There is question of a prior grade 4 cystocele and the pessary. The patient had a grade 1 rectocele. There was urethral hypermobility and atrophic vaginitis. The patient was then uneventfully reversed from anesthesia and taken to recovery room in stable condition. There were no complications at end of the procedure. She tolerated well. Plans will be to eventually order a nuclear medicine renal scan with Lasix washout to calculate differential post Lasix half-life and follow up the patient's hydronephrosis and see if there is any functionality to any obstruction. The patient will of course follow up on long-term basis. Christopher Ellis MD [place]/MODL /[id number]
== END | disposition home or self-care (01) ==
LOC: OR 05:54
PROVIDERS: ATTEND Urology
DX: N20.0 Calculus of kidney (principal); N39.0 Urinary tract infection, site not specified; N13.30 Unspecified hydronephrosis; N81.10 Cystocele, unspecified; N81.6 Rectocele; N36.41 Hypermobility of urethra; Q62.8 Other congenital malformations of ureter; N95.2 Postmenopausal atrophic vaginitis; N81.89 Other female genital prolapse; I10 Essential (primary) hypertension; I48.91 Unspecified atrial fibrillation; Z88.8 Allergy status to other drugs, medicaments and biological substances; Z88.0 Allergy status to penicillin; Z01.810 Encounter for preprocedural cardiovascular examination; Z01.812 Encounter for preprocedural laboratory examination; Z01.818 Encounter for other preprocedural examination; Z11.59 Encounter for screening for other viral diseases; Z79.02 Long term (current) use of antithrombotics/antiplatelets; Z86.73 Personal history of transient ischemic attack (TIA), and cerebral infarction without residual deficits; Z84.1 Family history of disorders of kidney and ureter
CPT/HCPCS: 36415; 50590; 71046; 74018; 80048; 85025; 93005; C1758; J0692; J1100; J2001 ×2; J2405; J2704; Q9967; U0002

== ENCOUNTER 2020-05-17 09:12 | Inpatient (IN) | payer MEDICARE ==
[2020-05-12 11:21] LABS: BASOPHILS % 0.6 % (0.0-1.0); EOSINOPHILS # (AUTO) 0.2 (0.0-0.4); EOSINOPHILS % 3.4 % (0.0-6.0); HEMATOCRIT 43.6 % (34.2-44.1); HEMOGLOBIN 13.9 g/dL (12.0-16.0); LYMPHOCYTES # (AUTO) 1.3 (1.0-3.2); LYMPHOCYTES % 25.3 % (18.0-39.1); MEAN CORPUSCULAR HEMOGLOBIN 28.7 pg (28-32); MEAN CORPUSCULAR HGB CONC 31.9 g/dL (31-35); MEAN CORPUSCULAR VOLUME 90.1 fL (81-99); MONOCYTES # (AUTO) 0.6 (0.2-0.8); MONOCYTES % 12.7 % (4.4-11.3); NEUTROPHILS # (AUTO) 2.9 (2.1-6.9); NEUTROPHILS % 57.6 % (38.7-80.0); PLATELET COUNT 242 x10e3/uL (140-360); RED BLOOD COUNT 4.84 x10e6/uL (3.6-5.1)
[2020-05-12 11:48] LABS: ANION GAP 16.1 mmol/L (8-16); CREATININE, SERUM 1.05 mg/dL (0.57-1.11); POTASSIUM 5.1 mmol/L (3.5-5.1)
[~2020-05-17] VITALS: Ht 160 cm; Wt 58.1 kg
[~2020-05-17 09:12] MED LIST changes: -B&O 60MG R/S 60 MG SUPP PR ONE; +BACTRIM DS TAB1 EACH PO; -CEFEPIME 1GM/NS 0.9% 50 ML 50 ML IV ONE; -DEXAMETHASONE SOD PHOS INJ 4 MG/ML VIAL ONE; -IOPAMIDOL 300MG/ML 50ML INFUS..BTL IV ONE; +K-DUR20 MEQ PO; -LIDOCAINE HCL 2% JELLY 5 ML TUBE ONE; -LIDOCAINE HCL 2% LOCAL INJ 5 ML SDV VIAL INJ ONE; +METOPROLOL SUCC50 MG PO; -ONDANSETRON HCL INJ 2MG/ML 2ML 2 MG/ML VIAL ONE; -PROPOFOL IV EMULSION 10 MG/ML 20 ML VIAL ONE; -SEVOFLURANE INHAL SOLN 250 ML PEN BTL ONE; +VIT C PO; +ZINC SULFATE220 M1 PO
[2020-05-17] MEDS ORDERED: CEFTRIAXONE SOD 1 GM/NS 50 ML 50 ML IV ONE (09:40)
[2020-05-17] MEDS ORDERED: GENTAMICIN 80MG/NS 100 ML 200 ML IV ONE (09:40)
[2020-05-17] MEDS ORDERED: BUPIVACAINE 0.25% 30ML SDV ONE (10:09)
[2020-05-17] MEDS ORDERED: INDIGOTINDISULFONATE SODIUM 8 MG/ML AMP IJ ONE (10:09)
[2020-05-17] MEDS ORDERED: LIDOCAINE 1% W/EPINEPHRINE 20 ML VIAL ONE (10:09)
[2020-05-17] MEDS ORDERED: IOPAMIDOL 300MG/ML 50ML INFUS..BTL IV ONE (10:09)
[2020-05-17] MEDS ORDERED: GENTAMICIN SULFATE 40 MG/ML 2 ML VIAL ONE (10:09)
[2020-05-17] MEDS ORDERED: SILVER SULFADIAZINE 50GM CREAM ONE (11:25)
[2020-05-17] MEDS ORDERED: PHENAZOPYRIDINE HCL 100 MG TAB PO PRN (11:45)
[2020-05-17] MEDS ORDERED: D5.45%NS/KCL 20MEQ 1,000 ML IV SCH (11:45)
[2020-05-17] MEDS ORDERED: DIPHENHYDRAMINE HCL 25 MG CAP PO PRN (11:45)
[2020-05-17] MEDS ORDERED: ONDANSETRON HCL INJ 2MG/ML 2ML 2 MG/ML VIAL IV PRN (11:45)
[2020-05-17] MEDS ORDERED: LIDOCAINE HCL 2% LOCAL INJ 5 ML SDV VIAL INJ ONE (12:55)
[2020-05-17] MEDS ORDERED: LIDOCAINE HCL 2% JELLY 5 ML TUBE ONE (12:55)
[2020-05-17] MEDS ORDERED: ONDANSETRON HCL INJ 2MG/ML 2ML 2 MG/ML VIAL ONE (12:55)
[2020-05-17] MEDS ORDERED: PROPOFOL IV EMULSION 10 MG/ML 20 ML VIAL ONE (12:55)
[2020-05-17] MEDS ORDERED: SEVOFLURANE INHAL SOLN 250 ML PEN BTL ONE (12:55)
[2020-05-17] MEDS ORDERED: SUGAMMADEX SODIUM 200 MG/2 ML VIAL IV ONE (13:39)
[2020-05-17] MEDS ORDERED: FENTANYL CITRATE/PF 100MCG/2 ML INJ ONE (13:59)
[2020-05-17 15:40] VITALS: BP 117/60
[2020-05-17 15:58] VITALS: BP 117/60
[2020-05-17 16:00] VITALS: BP 117/60
[2020-05-17] MEDS: ACETAMINOPHEN/CODEINE 300MG - 30MG TAB PO PRN ×2 (16:30→21:10)
[2020-05-17] MEDS: DOCUSATE SODIUM 100 MG CAP PO SCH (16:30)
[2020-05-17] MEDS ORDERED: ACETAMINOPHEN 1000 MG/100 ML IV PRN (17:00)
[2020-05-17 17:41] LABS: ALBUMIN 3.3 g/dL (3.5-5.0); ALBUMIN/GLOBULIN RATIO 1.2 (0.8-2.0); ANION GAP 12.7 mmol/L (8-16); CALCIUM 8.1 mg/dL (8.4-10.2); CREATININE, SERUM 0.9 mg/dL (0.57-1.11); POTASSIUM 4.7 mmol/L (3.5-5.1)
[2020-05-17] MEDS: DEXTROSE 5%/0.45% SOD CHL 1,000 ML IV SCH (19:41)
[2020-05-17 20:09] VITALS: BP 128/93
[2020-05-17 21:05] VITALS: BP 128/93
[2020-05-18] VITALS (7 sets, daily range): BP systolic 102–125; BP diastolic 66–92
[2020-05-18] MEDS: DEXTROSE 5%/0.45% SOD CHL 1,000 ML IV SCH ×3 (04:12→20:51)
[2020-05-18 05:33] LABS: BASOPHILS % 0.3 % (0.0-1.0); EOSINOPHILS # (AUTO) 0.1 (0.0-0.4); EOSINOPHILS % 0.6 % (0.0-6.0); HEMATOCRIT 39.4 % (34.2-44.1); HEMOGLOBIN 12.6 g/dL (12.0-16.0); LYMPHOCYTES # (AUTO) 1.5 (1.0-3.2); LYMPHOCYTES % 19.3 % (18.0-39.1); MEAN CORPUSCULAR HEMOGLOBIN 29.1 pg (28-32); MONOCYTES # (AUTO) 0.6 (0.2-0.8); MONOCYTES % 7.4 % (4.4-11.3); NEUTROPHILS # (AUTO) 5.6 (2.1-6.9); NEUTROPHILS % 72.1 % (38.7-80.0); PLATELET COUNT 187 x10e3/uL (140-360); RED BLOOD COUNT 4.33 x10e6/uL (3.6-5.1); RED CELL DISTRIBUTION WIDTH 13.8 % (11.7-14.4)
[2020-05-18] MEDS: ACETAMINOPHEN/CODEINE 300MG - 30MG TAB PO PRN ×4 (05:52→20:52)
[2020-05-18 05:54] LABS: ANION GAP 10.5 mmol/L (8-16); BLOOD UREA NITROGEN 9 mg/dL (7-26); BUN/CREATININE RATIO 11 (6-25); CALCIUM 7.8 mg/dL (8.4-10.2); CARBON DIOXIDE 24 mmol/L (22-29); CHLORIDE 107 mmol/L (98-107); EST GLOMERULAR FILTRATION RATE > 60 ML/MIN (60-); GLUCOSE 138 mg/dL (74-118); POTASSIUM 4.5 mmol/L (3.5-5.1); SODIUM 137 mmol/L (136-145)
[2020-05-18 06:20] LABS: MAGNESIUM 1.7 MG/DL (1.3-2.1); PHOSPHORUS 3.2 MG/DL (2.3-4.7)
[2020-05-18] MEDS: METOPROLOL SUCCINATE 50 MG TAB XL PO SCH (09:00)
[2020-05-18] MEDS: AMLODIPINE BESYLATE 10 MG TAB PO SCH (09:00)
[2020-05-18] MEDS: DOCUSATE SODIUM 100 MG CAP PO SCH ×2 (09:05→16:43)
[2020-05-18] MEDS: CEFTRIAXONE SOD 1 GM/NS 50 ML 50 ML IV SCH (11:06)
[2020-05-18] MEDS ORDERED: ZOLPIDEM TARTRATE 5 MG TAB PO PRN (21:00)
[2020-05-19] VITALS: BP_SYST 121; BP_SYST 125; BP_DIAS 77; BP_DIAS 81
[2020-05-19 04:00] VITALS: BP 110/70
[2020-05-19] MEDS: DEXTROSE 5%/0.45% SOD CHL 1,000 ML IV SCH ×2 (04:00→11:54)
[2020-05-19 05:46] LABS: BASOPHILS % 0.4 % (0.0-1.0); EOSINOPHILS # (AUTO) 0.1 (0.0-0.4); EOSINOPHILS % 0.9 % (0.0-6.0); HEMATOCRIT 39.8 % (34.2-44.1); HEMOGLOBIN 12.2 g/dL (12.0-16.0); LYMPHOCYTES # (AUTO) 1.4 (1.0-3.2); LYMPHOCYTES % 17.6 % (18.0-39.1); MEAN CORPUSCULAR HEMOGLOBIN 28.8 pg (28-32); MEAN CORPUSCULAR HGB CONC 30.7 g/dL (31-35); MEAN CORPUSCULAR VOLUME 94.1 fL (81-99); MONOCYTES # (AUTO) 0.6 (0.2-0.8); MONOCYTES % 7.2 % (4.4-11.3); NEUTROPHILS % 73.5 % (38.7-80.0); PLATELET COUNT 157 x10e3/uL (140-360); RED BLOOD COUNT 4.23 x10e6/uL (3.6-5.1); RED CELL DISTRIBUTION WIDTH 13.9 % (11.7-14.4)
[2020-05-19 06:15] LABS: ANION GAP 13.2 mmol/L (8-16); BLOOD UREA NITROGEN 5 mg/dL (7-26); BUN/CREATININE RATIO 7 (6-25); CALCIUM 7.9 mg/dL (8.4-10.2); CARBON DIOXIDE 22 mmol/L (22-29); CHLORIDE 107 mmol/L (98-107); CREATININE, SERUM 0.74 mg/dL (0.57-1.11); EST GLOMERULAR FILTRATION RATE > 60 ML/MIN (60-); GLUCOSE 112 mg/dL (74-118); POTASSIUM 4.2 mmol/L (3.5-5.1); SODIUM 138 mmol/L (136-145)
[2020-05-19 06:42] LABS: MAGNESIUM 1.7 MG/DL (1.3-2.1); PHOSPHORUS 2.7 MG/DL (2.3-4.7)
[2020-05-19 08:18] VITALS: BP 123/72
[2020-05-19] MEDS: METOPROLOL SUCCINATE 50 MG TAB XL PO SCH (09:00)
[2020-05-19] MEDS: DOCUSATE SODIUM 100 MG CAP PO SCH ×2 (09:00→17:33)
[2020-05-19] MEDS: AMLODIPINE BESYLATE 10 MG TAB PO SCH (09:00)
[2020-05-19] MEDS: CEFTRIAXONE SOD 1 GM/NS 50 ML 50 ML IV SCH (09:59)
[2020-05-19 10:02] VITALS: BP 123/72
[2020-05-19 12:00] VITALS: BP 105/82
[2020-05-19] MEDS ORDERED: ULTRAM50 MG PO (16:25)
[2020-05-19] MEDS ORDERED: LEVOFLOXACIN250 MG PO (16:25)
[2020-05-19 16:57] VITALS: BP 115/62
== END 2020-05-19 20:53 | disposition home or self-care (01) | DRG 748 ==
LOC: OR 09:12 → PACU V 11:42 → MED/SURG 15:37
PROVIDERS: ADMIT Internal Medicine; ATTEND Internal Medicine
PROC: 0TSD0ZZ Reposition Urethra, Open Approach (ICD-10-PCS; 2020-05-17)
PROC: BT141ZZ Fluoroscopy of Kidneys, Ureters and Bladder using Low Osmolar Contrast (ICD-10-PCS; 2020-05-17)
PROC: 0T788ZZ Dilation of Bilateral Ureters, Via Natural or Artificial Opening Endoscopic (ICD-10-PCS; 2020-05-17)
PROC: 0TSC4ZZ Reposition Bladder Neck, Percutaneous Endoscopic Approach (ICD-10-PCS; principal; 2020-05-17 11:32)
PROC: 0JUC0JZ Supplement of Pelvic Region Subcutaneous Tissue and Fascia with Synthetic Substitute, Open Approach (ICD-10-PCS; 2020-05-17 11:32)
DX: N81.10 Cystocele, unspecified (principal); I50.22 Chronic systolic (congestive) heart failure; I48.20 Chronic atrial fibrillation, unspecified; I11.0 Hypertensive heart disease with heart failure; N39.3 Stress incontinence (female) (male); Z20.822 Contact with and (suspected) exposure to COVID-19; Z87.440 Personal history of urinary (tract) infections; Z87.442 Personal history of urinary calculi; I48.91 Unspecified atrial fibrillation; Z86.73 Personal history of transient ischemic attack (TIA), and cerebral infarction without residual deficits
CPT/HCPCS: 36415; 74420; 80048; 80053; 82948; 83735; 84100; 85025; 93005; C1752; C1758; J0696; J1580; J2001; J2405; J3010; U0002